=== PATIENT | male | born 1955 | race Caucasian/White ===

== ENCOUNTER 2022-03-03 17:27 | Outpatient (CLI) | payer OTHER, SELFPAY ==
--- NOTE | ~2022-03-03 | XR_ITS ---
EXAMINATION: XR tibia fibula RT 2V INDICATION: None impression chronic ulcer of the right leg TECHNIQUE: Two views of the right tibia and fibula are obtained on four radiographs. COMPARISON: None available FINDINGS: There are changes of fusion of the calcaneus and talus with the tibia. There is lucency jhon rounding the intramedullary sima, particularly near the distal tibia and in the bones of the foot. No acute fracture is identified. There is diffuse osteopenia. The calcaneus and talus are deformed. Soft tissue swelling is seen involving the mid and distal leg. IMPRESSION: 1. Soft tissue swelling of the mid and distal leg. 2. Orthopedic stabilization of the foot and tibia with lucency surrounding the distal hardware which could reflect loosening. Reviewed, dictated and finalized at location A.
== END 2022-03-03 17:28 | disposition home or self-care (01) ==
PROVIDERS: PCP Nurse Practitioner Family; Visit Provider Podiatrist Foot & Ankle Surgery
DX: L97.812 Non-pressure chronic ulcer of other part of right lower leg with fat layer exposed (principal); M79.89 Other specified soft tissue disorders
CPT/HCPCS: 73590